=== PATIENT | male | born 1975 | race African-American/Black ===

== ENCOUNTER → 2017-02-06 | Outpatient (CLI) | payer OTHER ==
--- NOTE | 2017-02-06 16:06 | RADIOLOGY REPORT (SQ) ---
EXAM DESCRIPTION: VENOUS UNILATERAL LOWER COMPLETED DATE/TIME: 02/06/2017 3:56 pm REASON FOR STUDY: RLE PAIN M79.651 PAIN IN RIGHT THIGH COMPARISON: None. TECHNIQUE: Dynamic and static hall scale and color images acquired of the right leg venous system. S elected spectral images acquired with additional compression and augmentation maneuvers. The contrala teral common femoral vein and saphenofemoral junction were also imaged. Images stored on PACS. LIMITATIONS: None. FINDINGS: COMMON FEMORAL: Normal phasicity, compression and augmentation. No visualized echogenic ma terial on hall scale. No defects on color images. FEMORAL: Normal compression and augmentation. No visualized echogenic material on hall scale. No defe cts on color images. POPLITEAL: Normal compression, augmentation. No visualized echogenic material on hall scale. No defec ts on color images. CALF VESSELS: Normal compression, augmentation. No visualized echogenic material on hall scale. No de fects on color images. GSV and SSV: Normal compression, augmentation. No visualized echogenic material on hall scale. No def ects on color images. ANY DEEP VENOUS INSUFFICIENCY: Not evaluated. ANY EVIDENCE OF POPLITEAL CYST: No. OTHER: No other significant finding. CONTRALATERAL COMMON FEMORAL VEIN AND SAPHENOFEMORAL JUNCTION: Normal phasicity, compression and augmentation. No visualized echogenic material on hall scale. No de fects on color images. IMPRESSION: NO EVIDENCE DVT OR SVT IN THE RIGHT LEG. TECHNICAL DOCUMENTATION: JOB ID: [id number] [email or web address] Rights Reserved
== END ==
LOC: SP 14:09
PROVIDERS: ATTEND Internal Medicine
DX: M79.651 Pain in right thigh (principal)
CPT/HCPCS: 93971